=== PATIENT | male | born 2000 | race Caucasian/White ===

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

== ENCOUNTER 2022-10-08 04:54 | Emergency (ER) | payer OTHER, SELFPAY ==
[2022-10-08 04:54] VITALS: BP 119/96; PULSE 85; RESP 18; TEMP 36.6; O2SAT 97; BMI 18.1
--- NOTE | 2022-10-08 05:15 | EDS_ITS ---
HPI History of Present Illness HPI Narrative: Patient presents with a laceration to his right fifth finger that occurred today. Patient states he was doing metal shavings out elbow machine when one of them went through his glove patient states he is having difficulty flexing the DIP joint since the injury. Patient admits to some tingling into the tip of his left fifth finger. Patient is unsure of his last tetanus. Patient denies any other injuries. Chief Complaint: Laceration Informant: patient Onset/Context/Timing Onset: Today Context: Sudden Onset Timing: Continuous Quality of Pain: Aching Location: Right fifth finger Worsened by: Nothing Relieved by: Nothing Associated Symptoms Associated Symptoms: Positive for Parasthesia and Weakness Narrative Tetanus Immunization: Unknown [facility] Medical History (Updated 10/08/22 @ 06:[address] Simon Salazar DO) Depression Home Medications montelukast 4 mg chewable tablet 4 mg PO DAILY 07/23/18 [History Last Taken Unknown] cephalexin 500 mg capsule 500 mg PO Q6 #40 CAPSULES 10/08/22 [Rx Last Taken Unknown] Allergy/AdvReac Type Severity Reaction Status Date / Time amoxicillin Allergy Rash Verified 07/23/18 16:34 Surgical History (Updated 10/08/22 @ 05:[address] Simon Salazar DO) H/O left wrist surgery Social History Smoking Status: Never smoker ROS ROS ED Constitutional Constitutional ED: Denies chills or fever(s) Eyes Eyes: Denies blurry vision or change in vision ENT ENT ED: Denies rhinorrhea or sore throat Cardiovascular Cardiovascular: Denies chest pain or palpitations Respiratory/Chest Respiratory/Chest: Denies cough or dyspnea Gastrointestinal Gastrointestinal: Denies nausea or vomiting Genitourinary Genitourinary ED: Denies dysuria or hematuria Musculoskeletal Musculoskeletal: Denies back pain or neck pain Integumentary Denies abscess or rash Neurologic Neurologic: Denies headache(s) or weakness Allergic/Immunologic Allergic/Immunologic ED: Denies mouth swelling or urticaria EXAM Physical Exam Const Vital Signs: 10/08/22 04:54 Temperature 98 F Temperature Source Temporal Pulse Rate 85 Respiratory Rate 18 Blood Pressure 119/96 H Blood Pressure Mean 103 Pulse Ox 97 Oxygen Delivery Method Room Air Positive well nourished and well developed General Appearance ED: well developed and NAD HEENT Reports moist mucous membranes Neck full ROM and supple Extremity Extremity Narrative: There is a 1.5 cm curvilinear laceration over the palmar aspect of the right fifth finger along the proximal phalanx. There is mild bleeding noted. Sensation was intact to light touch in all digits. Capillary refill is less t langley 2 seconds in all digits. Strength is 0/5 in flexion of the DIP joint. Strength is 3/5 in flexion of the PIP joint. Strength is 5/5 in flexion of the MP joint. Strength is 5/5 in extension of the MCP, PIP, and DIP joints. General Extremety ED: Negative for edema General Extremity: Negative for edema Neuro oriented x3, CN's II-XII intact bilaterally, moves all extremities, no focal motor deficits and no sensory deficits noted Sensorium / Orientation: alert Motor Exam: strength 5/5 throughout Psych mental status grossly normal MDM MDM MDM Narrative Medical decision making narrative: Differential diagnosis includes skin laceration, tendon laceration, and open fracture. X-rays of the right little finger will be obtained to assess for fracture and foreign body. Radiography Diagnostic Testing: X-rays of the right fifth finger were obtained. There are 3 views. On my independent interpretation, there is no acute fracture or foreign body noted. There is some mild soft tissue swelling noted. Radiologist also interpreted the x-ray and agrees. Treatment and Re-Evaluation Narrative: Patient was given a tetanus booster. Patient was given a dose of Ancef here. The wound was cleaned and irrigated with copious amounts of normal saline. The wound was anesthetized with 1% plain lidocaine via digital block. The wound was explored. I was unable to visualize the flexor tendon. The wound was closed with 4 simple interrupted #4-0 nylon sutures under sterile technique. Patient tolerated the procedure well. Bacitracin dressing was applied. Even though I was not able to visualize a tendon laceration, I do suspect there is a flexor tendon laceration since he is unable to flex the PIP and DIP joints. Patient was given a prescription for Keflex. Case was discussed with hand surgery from [facility]. Patient will be placed in AlumaFoam splint. Patient was instructed to follow-up with [facility] hand surgery in 3 to 5 days. Patient understood and was agreeable with plan. All questions were answered. Discharge Plan Triage Chief Complaint: Laceration ED Provider: Simon Salazar Dx/Rx/DC Orders Clinical Impression: Laceration of right little finger without foreign body, Flexor tendon laceration, finger, open wound Instructions: ED Laceration, Hand: All Closures, ED Tendon Laceration Prescriptions: New cephalexin [cephalexin] 500 mg capsule 500 mg PO Q6 Qty: 40 0RF No Action montelukast 4 MG tablet,chewable 4 mg PO DAILY Primary Care Provider: Tab Woodson Referrals: Susan Mccullough [Other] - As soon as possible (Go to his office today and he will see you today.) Tab Woodson MD [Primary Care Provider] - Disposition Disposition: Home, Self Care
--- NOTE | 2022-10-08 05:28 | RAD_ITS ---
EXAM: XR RIGHT FINGERS, 2 OR MORE VIEWS CLINICAL INDICATION: Injury/Pain TECHNIQUE: Frontal, lateral and oblique views of the fifth finger of the right hand. COMPARISON: No relevant prior studies available. FINDINGS: BONES/JOINTS: Unremarkable. No acute fracture. No subluxation. Normal alignment. Preservation of the joint space. No sclerotic or destructive changes observed. SOFT TISSUES: Soft tissue swelling of the fifth finger. No radiopaque foreign body. RAD/Finger(s) Min 2 Views IMPRESSION: Soft tissue swelling of the fifth finger. No fracture or radiopaque foreign body. Electronically Signed: Dhiraj Moore MD at 5:51 EDT ,
[2022-10-08] MEDS: Cefazolin 1 GM/50 ML BAG IV (05:36)
[2022-10-08] MEDS: Diphth,Pertuss(Acell),Tet Vac 0.5 ML Vial IM (05:37)
[2022-10-08] MEDS: Lidocaine 1% (20 ml mdv) 20 ML Vial INFILT (05:37)
[2022-10-08 07:33] VITALS: BP 131/69; PULSE 72; RESP 15; O2SAT 98
== END 2022-10-08 07:34 | disposition home or self-care (01) ==
PROVIDERS: Emergency Provider Emergency Medicine; PCP Pediatrics; Visit Provider Emergency Medicine
DX: S66.126A Laceration of flexor muscle, fascia and tendon of right little finger at wrist and hand level, initial encounter (principal); W26.8XXA Contact with other sharp object(s), not elsewhere classified, initial encounter; Y93.89 Activity, other specified; Y99.0 Civilian activity done for income or pay; Z23 Encounter for immunization
CPT/HCPCS: 12001; 73140; 90715; 96365; 99284; J7050; A4216